=== PATIENT | female | born 1935 | race Caucasian/White ===

== ENCOUNTER 2016-10-09 09:56 | Emergency (ER) | payer OTHER, BC ==
[~2016-10-09] VITALS: Ht 167.6 cm; Wt 106.2 kg
[~2016-10-09 09:56] MED LIST: ALEVE220 MG PO; AMBIEN10 MG PO; AMLODIPINE BES2.5 MG PO; AMLODIPINE BESYL5 MG PO; ASPIR 8181 M1; ASPIR 8181 M1 PO; ATORVASTATIN CA40 MG; ATORVASTATIN CA40 MG PO; AZATHIOPRINE50 MG PO; Aspirin E.C. PO; BRILINTA90 MG; BRILINTA90 MG PO; CENTRUM SILVER1 EAC3 PO; ENDOCET 5-3251 EACH PO; FISH OIL 1,0001 EAC7 PO; Fish Oil PO; IRON325 M1 PO; LISINOPRIL10 MG PO; LISINOPRIL40 MG PO; LO-DOSE ASPIRIN81 M2 PO; LOVENOX40 MG/0.4 SC; Lipitor PO; Lopressor PO; METOPROLOL TART50 MG PO; MILLIPRED5 MG PO; NAPROSYN500 MG PO; NITROSTAT0.4 MG SL; NON-ASPIRIN PA325 MG PO; OMEPRAZOLE40 M1 PO; OXYCODONE-ACET1 EACH PO; OXYCONTIN10 MG PO; PHENTERMINE HCL30 MG PO; PREDNISONE10 MG PO; PREDNISONE5 MG PO; PRILOSEC40 MG PO; SERTRALINE HCL50 MG; ST. JOSEPH ASPI81 MG PO; TRAMADOL HCL50 MG PO; ULTRAM50 MG PO; VITAMIN D1000 INTUN PO; VITAMIN D31000 UNI2 PO; Vitamin D PO; ZESTRIL40 MG PO; ZOLPIDEM TARTRA10 MG PO; Zestril,Prinivil PO; Zoloft PO
[2016-10-09] MEDS ORDERED: KEFLEX500 MG PO (12:27)
[2016-10-09] MEDS ORDERED: MOTRIN600 MG PO (12:27)
[2016-10-09 12:59] VITALS: BP 153/72
== END 2016-10-09 13:00 | disposition home or self-care (01) ==
LOC: EME 09:56
DX: I80.01 Phlebitis and thrombophlebitis of superficial vessels of right lower extremity (principal); I10 Essential (primary) hypertension; I25.2 Old myocardial infarction; Z86.718 Personal history of other venous thrombosis and embolism; Z88.0 Allergy status to penicillin
CPT/HCPCS: 80048; 85027; 93971; 99281; 99284